=== PATIENT | female | born 1980 | race Caucasian/White ===

== ENCOUNTER 2016-10-19 22:20 | Emergency (ER) | payer BC ==
[2016-10-20] MEDS ORDERED: ADVIL (17:56)
== END 2016-10-20 04:05 | disposition home or self-care (01) ==
LOC: ER 22:20
PROC: 2W3DX1Z Immobilization of Left Lower Arm using Splint (ICD-10-PCS; principal; 2016-10-19)
DX: S52.572A Other intraarticular fracture of lower end of left radius, initial encounter for closed fracture (principal); Z88.0 Allergy status to penicillin; W19.XXXA Unspecified fall, initial encounter; Y93.79 Activity, other specified sports and athletics
CPT/HCPCS: 73100-LT; 73120; 96372; 99284